=== PATIENT | female | born 1995 ===

== ENCOUNTER 2023-07-07 09:32 | Outpatient (CLI) | payer OTHER ==
--- NOTE | 2023-07-08 12:24 | Ultrasound Report ---
PROCEDURE: Pelvic w/Transvaginal INDICATIONS: CHRONIC PELVIC PAIN TECHNIQUE: Real-time scanning was performed of the pelvic organs, with image documentation. Additional endovagi nal scanning was necessary due to incomplete visualization of the adnexal and endometrial structures by transabdominal scanning. COMPARISON: None. FINDINGS: Uterus: Uterus is anteverted and normal in size at 8.7 x 4.2 x 4.0 cm. The myometrium is heterogene ous. The endometrium measures 6 mm in combined thickness. Trace fluid is noted within the cervical canal which is likely physiologic in a premenopausal female. Ovaries: The right ovary measures 2.8 x 1.7 x 1.9 cm, with a calculated ovarian volume of 4.8 cc. T he left ovary measures 2.3 x 1.4 x 1.9 cm, with a calculated ovarian volume of 3.2 cc. The ovaries h ave a normal sonographic appearance. Less than 12 follicles can be seen in each ovary. No adnexal m asses are seen. No cystic lesions measuring greater than 3 cm. Other: No pathologic free abdominal or pelvic fluid. IMPRESSION: Unremarkable pelvic ultrasound. Reviewed by: Kenya Baltazar MD on 07/08/2023 12:23 PM PDT Approved by: Kenya Baltazar MD on 07/08/2023 12:23 PM PDT Station ID: [id number]
== END 2023-07-07 09:33 | disposition home or self-care (01) ==
LOC: DI 09:32
PROVIDERS: ATTEND Obstetrics & Gynecology
DX: R10.2 Pelvic and perineal pain (principal); G89.29 Other chronic pain

== ENCOUNTER 2023-10-23 07:03 | Day surgery (SDC) | payer OTHER ==
[~2023-10-23 07:03] MED LIST: ceFAZolin 2 GM VIAL ONE; metroNIDAZOLE 500 MG/100 ML 500 MG/100 ML BAG ONE
[2023-10-23] MEDS: LACTATED RINGERS 1,000 ML IV ONE (07:16)
[2023-10-23 07:23] LABS: HCG UR QUAL NEGATIVE
[2023-10-23 07:51] LABS: BASOPHILS # (AUTO) 0.1 10^3/uL (0.0-0.1); BASOPHILS % (AUTO) 0.5 %; EOSINOPHILS # (AUTO) 0.1 10^3/uL (0.0-0.7); EOSINOPHILS % (AUTO) 0.8 %; HGB - HEMOGLOBIN 13.6 g/dL (12.0-16.0); LYMPHOCYTES # (AUTO) 2.6 10^3/uL (1.5-3.5); LYMPHOCYTES % (AUTO) 22.1 %; MEAN CORPUSCULAR HEMOGLOBIN 29.8 pg (27.0-31.0); MEAN CORPUSCULAR VOLUME 87.5 fL (81.0-99.0); MEAN PLATELET VOLUME 10.7 fL (7.9-10.8); MONOCYTES # (AUTO) 0.8 10^3/uL (0.0-1.0); MONOCYTES % (AUTO) 6.9 %; NEUTROPHILS # (AUTO) 8.1 10^3/uL (1.5-6.6); NEUTROPHILS % (AUTO) 69.4 %; PLT - PLATELET COUNT 311 10^3/uL (130-450); RED BLOOD COUNT 4.57 10^6/uL (4.20-5.40); RED CELL DISTRIBUTION WIDTH 12.2 % (12.0-15.0); WHITE BLOOD COUNT 11.7 x10^3/uL (4.8-10.8)
[2023-10-23] MEDS ORDERED: POTASSIUM IODIDE/IODINE 14 ML SOLUTION ONE (07:54)
[2023-10-23] MEDS ORDERED: BUPIVACAINE 0.25% PF 30 ML VIAL ONE (07:55)
[2023-10-23] MEDS ORDERED: ESTROGENS, CONJUGATED CREAM 30 GM TUBE ONE (07:55)
--- NOTE | 2023-10-23 08:02 | ANESTHESIA ---
Pre-Anesthesia VS, & Labs - Diagnosis Chronic Pelvic Pain - Procedure Vaginal Hysterectomy Vital Signs: Temp Pulse Resp BP Pulse Ox O2 Flow Rate 96.3 C H 96 22 134/84 H 96 10/23/23 07:16 10/23/23 07:16 10/23/23 07:16 10/23/23 07:16 10/23/23 07:16 Height: 5 ft 4.5 in Weight (kg): 96.3 kg Body Mass Index: 35.9 BMI Classification: Obese - Is Patient ?: No - Lab Results Current Lab Results: Laboratory Tests 10/23/23 07:35: WBC 11.7 H, RBC 4.57, Hgb 13.6, Hct 40.0, MCV 87.5, MCH 29.8, MCHC 34.0, RDW 12.2, Plt Count 311, MPV 10.7, Neut # (Auto) 8.1 H, Lymph # (Auto) 2.6, [place] # (Auto) 0.8, Eos # (Auto) 0.1, Baso # (Auto) 0.1, Absolute Nucleated RBC 0.00, Nucleated RBC % 0.0 Lab results reviewed: Yes Fish Bones: 10/23/23 07:35 Home Medications and Allergies Home Medications: Ambulatory Orders Acetaminophen [Tylenol] 650 mg PO Q6H PRN 10/11/23 Cetirizine [ZyrTEC] 20 mg PO DAILY 10/11/23 Etonogestrel/Ethinyl Estradiol [Nuvaring Vaginal Ring] 1 each VG ONCE 10/11/23 Ibuprofen [Motrin] 600 mg PO Q6H PRN 10/11/23 Acetaminophen [Tylenol] 650 mg PO Q6H PRN 10/11/23 Cetirizine [ZyrTEC] 20 mg PO DAILY 10/11/23 Etonogestrel/Ethinyl Estradiol [Nuvaring Vaginal Ring] 1 each VG ONCE 10/11/23 Ibuprofen [Motrin] 600 mg PO Q6H PRN 10/11/23 Allergies/Adverse Reactions: Allergies Allergy/AdvReac Type Severity Reaction Status Date / Time cobalt chloride Allergy Unknown Verified 10/23/23 07:27 egg Allergy Nausea Verified 10/23/23 07:27 propolis (bee glue) Allergy Unknown Verified 10/23/23 07:27 sulfite Allergy Unknown Verified 10/23/23 07:27 tramadol Allergy severe Verified 10/23/23 07:27 nausea dial antibacterial liquid Allergy Itching, Uncoded 10/23/23 07:27 soap rash nickel sulfate Allergy Unknown Uncoded 10/23/23 07:27 Anes History & Medical History - Anesthetic History Anesthesia Complications: reports: No previous complications Family history of Anesthesia Complications: Denies Family history of Malignant Hyperthermia: Denies - Medical History Cardiovascular: reports: Arrhythmia (hx sinus arrhythmia; ekg sinus rhythm currently) Pulmonary: reports: None Gastrointestinal: reports: GERD, Other Urinary: reports: None Neuro: reports: Migraines (2x/mo; unknown triggers) Musculoskeletal: reports: None Endocrine/Autoimmune: reports: None Blood Disorders: reports: None Skin: reports: None Smoking Status: Never smoker Psychosocial: reports: No issues indicated History of Cancer?: No - Surgical History Orthopedic: reports: Other (sx on L hand) Results - EKG Results EKG Comparison: Reviewed EKG, Normal EKG Exam General: Alert, Oriented x3, Cooperative, No acute distress Dental: WNL Mouth Openin Fingerbreadth Neck Mobility: Normal Mallampati classification: I Thyromental Distance: 4-6 cm Respiratory: Lungs clear, Normal breath sounds, No respiratory distress, No accessory muscle use Cardiovascular: Regular rate, Normal S1, Normal S2, No murmurs Plan Anesthesia Type: General Consent for Procedure(s) Verified and Reviewed: Yes Code Status: Attempt Resuscitation ASA classification: 1-Healthy patient Is this case an emergency?: No
[2023-10-23] MEDS ORDERED: ePHEDrine 50 MG/ML VIAL IVP PRN (08:06)
[2023-10-23] MEDS ORDERED: ONDANSETRON 4 MG/2 ML VIAL IVP PRN ×2 (08:06→10:17)
[2023-10-23] MEDS ORDERED: MORPHINE 2 MG/ML CARPUJECT IVP PRN (08:06)
[2023-10-23] MEDS ORDERED: ATROPINE ABBOJECT 1 MG/10 ML SYRINGE IVP PRN (08:06)
[2023-10-23] MEDS ORDERED: NALOXONE 0.4 MG/ML VIAL IVP PRN (08:06)
[2023-10-23] MEDS ORDERED: MIDAZOLAM 2 MG/2 ML VIAL ONE (08:09)
[2023-10-23] MEDS ORDERED: ROCURONIUM 50 MG/5 ML VIAL ONE (08:09)
[2023-10-23] MEDS ORDERED: GLYCOPYRROLATE 1 MG/5 ML VIAL ONE (08:09)
[2023-10-23] MEDS ORDERED: LIDOCAINE-PF 2% 10 ML AMP SUBQ ONE (08:09)
[2023-10-23] MEDS ORDERED: PROPOFOL 200 MG/20 ML VIAL IVP ONE (08:09)
[2023-10-23] MEDS ORDERED: DEXAMETHASONE 4 MG/ML VIAL ONE (08:13)
[2023-10-23] MEDS ORDERED: DEXAMETHASONE 10 MG/ML VIAL ONE (08:13)
[2023-10-23] MEDS ORDERED: ACETAMINOPHEN 1,000 MG/100 ML 1,000 MG/100 ML BAG IV ONE (08:17)
[2023-10-23] MEDS: SCOPOLAMINE PATCH TOP SCH (08:19)
[2023-10-23] MEDS: BUPIVACAINE 0.25% PF 30 ML VIAL SUBQ ONE ×2 (08:55)
[2023-10-23] MEDS ORDERED: HYDROmorphone 1 MG/ML CARPUJECT ONE (09:00)
[2023-10-23] MEDS ORDERED: LACTATED RINGERS 1,000 ML IV SCH (09:00)
[2023-10-23] MEDS ORDERED: SUGAMMADEX 200 MG/2 ML VIAL IVP ONE (09:27)
[2023-10-23] MEDS: LACTATED RINGERS 500 ML IV ONE ×2 (09:51→09:54)
[2023-10-23] MEDS ORDERED: HYDROmorphone 0.5 MG/0.5 ML SYRINGE ONE (10:02)
[2023-10-23] MEDS ORDERED: fentaNYL 100 MCG/2 ML VIAL ONE (10:02)
[2023-10-23] MEDS: HYDROmorphone 0.5 MG/0.5 ML SYRINGE IVP PRN (10:04)
[2023-10-23] MEDS: fentaNYL 100 MCG/2 ML VIAL IVP PRN (10:09)
[2023-10-23] MEDS ORDERED: KETOROLAC 15 MG/ML VIAL ONE (10:23)
[2023-10-23] MEDS: KETOROLAC 30 MG/ML VIAL IVP SCH (10:30)
[2023-10-23] MEDS: ONDANSETRON 4 MG/2 ML VIAL ONE (10:45)
--- NOTE | 2023-10-23 10:48 | OPERATIVE REPORT ---
Operative Report - General Procedure Date: 10/23/23 Planned Procedure: vaginal hysterectomy, remove tubes if able Pre-Op Diagnosis: menorrhagia, pelvic pain Procedure Performed: vaginal hysterectomy with removal of left fallopian tube Post Op Diagnosis: same - Procedure Note Primary Surgeon: Samara Forbes MD Secondary Surgeon: Raymond Hutton MD Anesthesia Provider: Brian Sanchez CRNA Anesthesia Technique: General ET tube Pathology: uterus and left tube IV Fluids (mL): 1,000 Estimated Blood Loss (mL): 75 Urine Output (mL): 0 - Other Other Information/Narrative: Findings: 55 gram uterus. multiple Nabothian cysts on cervix. right ovary seen and normal. left ovary not seen. right tube not seen, left tube removed and appeared normal. Indications for Procedure: Patient is a 27 year-old woman, G0 , with life long miserable periods. She is currently using NuvaRing to manage these and for contraception. She is sure that she never wants to conceive a child. She desires hysterectomy to end her periods which are horrible for her. She has never found medication that manages them well enough. She has signed the appropriate consent forms. Procedure: The patient was taken to the operating room where she was correctly identified. 2.5 gm of Metrocef was given. She was placed in a dorsal supine position, and general endotracheal anesthesia was administered without difficulty. She was then placed in high lithotomy position with her legs in Hawk stirrups. She was prepped and draped in the normal sterile fashion. A posterior weighted speculum was placed in the vagina, and the cervix was grasped with two single-tooth tenacula. 0.25% Marcaine was injected circumferentially around the cervix. A bovie was then used to make a circumferential incision around the cervix. Flynn scissors were then used to gently dissect the anterior and posterior surfaces of the cervix, allowing for the bladder and rectum to be dissected away. The posterior peritoneum was entered. A stitch was placed to bring the peritoneum to the posterior cuff edge and this was held around the weighted speculum to hold it in place. Tamar clamps were used bilaterally to clamp the uterosacral ligaments. These pedicles were transected and then suture ligated with 0 Vicryl. These pedicles were then affixed to the cuff edge. The cardinal ligaments were similarly clamped cut and tied off with 0 Vicryl suture and affixed to the cuff. The anterior peritoneum was then entered. Subsequent bites were taken bilaterally along the broad ligament with each pedicle being transected and suture ligated with 0 Vicryl. The last pedicles were transected and the uterus was removed intact. All pedicles were noted to be hemostatic. The left fallopian tube identified and appeared normal. I grapsed behind the tube with a clamp and the tube was removed with scissors and handed off. This was tied off with an 0 vicryl suture. I was not able to see the tube on the right adequately so it was not removed. The anterior cuff edge was brought together with the anterior peritoneum with a figure of 8 stitch. The vaginal cuff edges were then closed with 0 Vicryl. The cuff was closed with running 0 Vicryl suture from inside to outside. The cuff was hemostatic. The patient was awakend and brought to the recovery room in stable condition. No complications. counts correct
[2023-10-23] MEDS: oxyCODONE 5 MG TABLET PO PRN (11:54)
--- NOTE | 2023-10-23 14:07 | ANESTHESIA POST OP EVALUATION ---
Anesthesia Post Eval - Post Anesthesia Eval Vitals: Last Vital Signs Temp 36.5 C 10/23/23 13:23 Pulse 100 10/23/23 13:23 Resp 19 10/23/23 13:23 BP 146/97 H 10/23/23 13:23 Pulse Ox 96 10/23/23 13:23 O2 Flow Rate CV Function Including HR & BP: Stable Pain Control: Satisfactory Nausea & Vomiting: Negative Mental Status: Baseline Respiratory Status: Airway Patent Hydration Status: Satisfactory Anesthesia Complications: None
[2023-10-23] MEDS: HYDROmorphone 2 MG/ML VIAL IVP PRN (14:51)
--- NOTE | 2023-10-23 15:56 | PHARMACY PROGRESS NOTE ---
- Best Possible Medication History Admit Date and Time: Processed by: Pharmacy Medications reviewed in ED?: No Medication History completed: Yes Patient Interview: Completed Secondary Source(s): Insurance records As the person ultimately responsible for medication therapy, providers are able to order a medication from an existing home medication list in [facility] via the "Reconcile Routine" prior to Confirmation of that medication by computer support specialist instructor. Such practice is discouraged except when the physician, in their clinical judgment, deems that a medical need exists for a medication without regard to previous use.
[2023-10-23] MEDS: diphenhydrAMINE 25 MG CAPSULE PO PRN (20:06)
[2023-10-24] MEDS: oxyCODONE 5 MG TABLET PO PRN (06:09)
[2023-10-24 07:38] VITALS: BP 118/70; O2SAT 96
[2023-10-24] MEDS: CETIRIZINE 10 MG TABLET PO SCH (08:38)
== END 2023-10-24 08:40 | disposition home or self-care (01) ==
LOC: SDS 07:03 → MS2 11:15 → SDS 10-24 08:40
PROVIDERS: ATTEND Obstetrics & Gynecology
PROC: 0UT67ZZ Resection of Left Fallopian Tube, Via Natural or Artificial Opening (ICD-10-PCS; 2023-10-23)
PROC: 0UT97ZZ Resection of Uterus, Via Natural or Artificial Opening (ICD-10-PCS; principal; 2023-10-23 08:30)
DX: R10.2 Pelvic and perineal pain (principal); N94.6 Dysmenorrhea, unspecified; E66.9 Obesity, unspecified; Z68.35 Body mass index [BMI] 35.0-35.9, adult
CPT/HCPCS: 36415; 58262; 81025; 85025; A9270; J0131; J1170; J3490; J7120